=== PATIENT | female | born 1995 | race Caucasian/White ===

== ENCOUNTER 2020-12-22 19:26 | Emergency (ER) | payer OTHER ==
[~2020-12-22] VITALS: Ht 165.1 cm; Wt 90.9 kg
[2020-12-22] MEDS ORDERED: OLAN5TAB2 PO (20:43)
[2020-12-22 22:30] VITALS: BP 127/66
== END 2020-12-22 23:05 | disposition home or self-care (01) ==
LOC: EMS 19:29
DX: F41.9 Anxiety disorder, unspecified (principal); F31.9 Bipolar disorder, unspecified; R11.0 Nausea; R06.02 Shortness of breath; F20.9 Schizophrenia, unspecified
CPT/HCPCS: 93005; 99283